=== PATIENT | male | born 1955 | race Caucasian/White ===

== ENCOUNTER → 2018-04-23 | Outpatient (CLI) | payer OTHER ==
[~2018-04-23] MED LIST: ASP325 PO; ASPI-1471 PO; CHOL400C10 PO; LOSA25TA50 PO; METO25TA23 PO; NEB5 PO; NITR0.4T3 SL; OMEG300C PO; PRAS10TA PO; REGADENOSON 0.4 MG/5 ML SYR ONE; ROS10 PO; ROSU5TAB8 PO
--- NOTE | 2018-04-23 13:35 | RADIOLOGY IMAGING REPORT ---
FACILITY: [facility] PATIENT NAME: Lalo Denson : 1955 MR: [id number] V: [id number] EXAM DATE: ORDERING PHYSICIAN: CHRISTOPHER TALLEY TECHNOLOGIST: Location: [facility] [place] Patient: Lalo Denson : 1955 Visit/Account:[id number] Date of Sevice: 04/23/2018 EXAMINATION: Single Isotope SPECT Imaging with Exercise and Gated SPECT Imaging DATE OF EXAMINATION: April 23, 2018 DATE OF INTERPRETATION: April 23, 2018 REQUESTING PHYSICIAN: CHRISTOPHER TALLEY INDICATION: The patient is a 62-year-old male evaluated for coronary artery disease. PROCEDURE: After informed consent the patient received an intravenous injection of 11.6 mCi of Tc-9 9m sestamibi followed at the appropriate time interval by rest imaging. The patient then exercised a ccording to the standard Leon protocol for 8.5 minutes achieving 10 METS. Resting heart rate was 57 bpm with a peak heart rate of 139 bpm which is 86 % of maximal predicted heart rate for age. Blood pressure at rest was 131 / 87; blood pressure during exercise was 153 / 78. There was no chest pain during exercise. Exercise was discontinued because of fatigue. Baseline EKG demonstrates normal si nus rhythm with a right bundle branch block. There were no EKG changes of ischemia at peak exercise. Approximately one minute and 30 seconds prior to the termination of exercise, the patient received an intravenous injection of 29.9 mCi of Tc-99m sestamibi followed by stress imaging. RAW DATA: Examination of the summed raw data revealed a good quality study. MYOCARDIAL PERFUSION: The tomographic images demonstrate a severe decrease in myocardial perfusion t racer uptake in the basal to mid anterior, anteroseptal, and apical wall seen on both stress and rest images. No reversibility noted. GATED IMAGES: The gated images demonstrate an ejection fraction 38% with anterior, anteroseptal, and apical akinesis IMPRESSION: 1. Abnormal myocardial perfusion scan with evidence of a large prior myocardial infarction involving the anterior, anteroseptal, and apical wall. No inducible ischemia noted 2. Abnormal myocardial perfusion scan. 3. Abnormal LV systolic function; LVEF 38%. 4. Based on the results of this exam, the patient appears to be at high risk for future cardiovascula r events. Report Dictated By: Armida Mendoza at 04/23/2018 1:28 PM Report E-Signed By: Armida Mendoza at 04/23/2018 1:31 PM WSN:[id number]
== END ==
LOC: RESP 01:12
PROVIDERS: ATTEND Family Medicine
DX: I25.10 Atherosclerotic heart disease of native coronary artery without angina pectoris (principal)
CPT/HCPCS: 78452; 93017; A9500; J2785

== ENCOUNTER → 2018-04-26 | Outpatient (CLI) | payer OTHER ==
[~2018-04-26] MED LIST changes: -REGADENOSON 0.4 MG/5 ML SYR ONE
== END ==
LOC: LAB 09:13
PROVIDERS: ATTEND Internal Medicine Cardiovascular Disease
DX: I25.10 Atherosclerotic heart disease of native coronary artery without angina pectoris (principal)
CPT/HCPCS: 36415; 82040; 82247; 82310; 82374; 82435; 82565; 82947; 84075; 84132; 84155; 84295; 84450; 84460; 84484; 84520; 85027

== ENCOUNTER → 2018-08-01 | Day surgery (SDC) | payer OTHER ==
[~2018-08-01] VITALS: Ht 180.3 cm; Wt 79.4 kg
[~2018-08-01] MED LIST changes: +CLOP75TA PO; +LIDOCAINE/SOD BICARB 8.4% SYR ID ONE; -LOSA25TA50 PO; +LOSA25TA52 PO; +NORMOSOL R SOLN(*) 1000 ML BAG 1,000 ML IV PRN; +PROPOFOL EMUL(*) 10MG/ML 20 ML 20 ML ONE
[2018-08-01 11:13] VITALS: BP 106/73
[2018-08-01 12:13] VITALS: BP 98/68
[2018-08-01 12:39] VITALS: BP 104/77
[2018-08-01 12:53] VITALS: BP 98/74
[2018-08-01 12:55] VITALS: BP 105/79
== END ==
LOC: OR 00:40
PROVIDERS: ATTEND Family Medicine
DX: Z12.11 Encounter for screening for malignant neoplasm of colon (principal)
CPT/HCPCS: 00812; 45378; J2704